=== PATIENT | female | born 1960 | race Caucasian/White ===

== ENCOUNTER → 2018-03-27 14:43 | Outpatient (CLI) | payer OTHER, SELFPAY ==
--- NOTE | 2018-03-27 | DI.CT.S_ITS ---
PROCEDURE: CT CHEST W CON INDICATIONS: PULMONARY NODULE TECHNIQUE: After the administration of intravenous contrast, 5 mm thick sections acquired from the pulmonary apices to the posterior costophrenic angles. 7 mm thick coronal and sagittal MIP reformats were acquired. For radiation dose reduction, the following was used: automated exposure control, adjustment of mA and/or kV according to patient size. COMPARISON: [facility], CT, CT [place], 10/22/2012, 14:58. FINDINGS: Image quality: Diagnostic. Lungs and pleura: There is no focal consolidation, effusion, or pneumothorax. No overt heart failure is identified. Minimal areas of scarring versus atelectasis are seen within the lung bases (left greater than right). There is a dominant anteriorly positioned right upper lobe pulmonary nodule, which measures approximately 1.7 x 1.6 x 2.2 cm (image 22, series 2). This was not appreciated on the examination from 10/22/12. No additional pulmonary nodules or lung masses are identified. Mediastinum: Heart size is normal. No pericardial effusion. No mediastinal or hilar adenopathy by size criteria. Thoracic aorta and central pulmonary arteries are normal in size. Esophagus is normal in caliber. No hiatal hernia. Bones and chest wall: No suspicious bony lesions. No vertebral body compression fractures. Age-appropriate degenerative changes of the spine are present. There are postsurgical changes of the lower cervical spine which are not completely included on this exam. There appears to be calcific tendinitis of the right shoulder. Postoperative changes of the right breast are identified. Multiple surgical clips are incidentally noted. No axillary or supraclavicular adenopathy by size criteria. Thyroid gland is not enlarged. Abdomen: Visualized upper abdominal solid organs appear normal. Upper abdominal bowel loops are normal in caliber. IMPRESSION: 1. No acute cardiopulmonary process. 2. 2 cm right upper lobe pulmonary nodule is new since 2012. Percutaneous biopsy of this nodule is recommended for diagnostic purposes. 3. No lymphadenopathy. Dictated by: Nabor Engel M.D. on 03/27/2018 at 14:37 Approved by: Nabor Engel M.D. on 03/27/2018 at 14:50
== END ==
PROVIDERS: PCP Family Medicine; Visit Provider Family Medicine
DX: R91.1 Solitary pulmonary nodule (principal)
CPT/HCPCS: 71260; Q9967

== ENCOUNTER 2018-04-09 08:49 | Day surgery (SDC) | payer OTHER, SELFPAY ==
[2018-04-09] VITALS (14 sets, daily range): BP systolic 90–114; BP diastolic 56–75; PULSE 59–70; RESP 14–18; TEMP 36.2–36.8; O2SAT 97–100; BMI 24.1
--- NOTE | 2018-04-09 | DI.RAD.S_ITS ---
PROCEDURE: XR CHEST 1V INDICATIONS: POST LUNG BIOPSY TECHNIQUE: One view of the chest was acquired. COMPARISON: [facility], CT, CT CHEST W CON, 03/27/2018, 14:59. FINDINGS: Surgical changes and devices: Cervical spine fixation hardware. Clips project in the right axilla Lungs and pleura: No pleural effusions or pneumothorax. Redemonstration of right upper lobe pulmonary nodule Mediastinum: Mediastinal contours appear normal. Heart size is normal. Bones and chest wall: No suspicious bony lesions. Overlying soft tissues appear unremarkable. IMPRESSION: No pneumothorax, status post CT guided biopsy of right upper lobe pulmonary nodule Dictated by: Lane Hardy M.D. on 04/09/2018 at 11:55 Approved by: Lane Hardy M.D. on 04/09/2018 at 11:57
--- NOTE | 2018-04-09 | DI.CT.S_ITS ---
PROCEDURE: CT BIOPSY LUNG RT Sedation analgesia for approximately 15 minutes. INDICATIONS: LUNG MASS TECHNIQUE: The indications, alternatives, benefits, risks, and possible complications of the procedure were communicated to the patient. Informed written consent from the patient was obtained and placed in the chart. Continuous EKG and hemodynamic monitoring was started by trained personnel. The patient was brought to the CT suite and emissions repair technician spiral CT imaging was performed with localization grid. The appropriate site for percutaneous access to the biopsy target was marked, was prepped and draped sterilely, and was infused with local anaesthesia. Under CT guidance, a core biopsy trocar and needle set was advanced to the biopsy target, and specimen(s) were obtained. The trocar and needle were then removed, and the patient was sent for post-procedure monitoring. COMPARISON: None. FINDINGS: Biopsy site: Right upper lobe pulmonary nodule Needle: 20 gauge biopsy needle with introducer trocar. Number of passes: 4 Medications: 1% lidocaine for local anaesthesia. IV Fentanyl and Versed for conscious sedation for approximately 15 minutes (see nursing record). Complications: None. IMPRESSION: Successful CT-guided biopsy of right upper lobe pulmonary nodule. Dictated by: Lane Hardy M.D. on 04/09/2018 at 11:52 Approved by: Lane Hardy M.D. on 04/09/2018 at 12:05
--- NOTE | 2018-04-09 | PATH_ITS ---
[facility] Accession Number: [id number] . 01 Material submitted: . RUL . 01 Clinical history: . MASS 4 NEEDLE CORE BIOPSY . 02 Diagnosis: Needle Core Biopsies, Upper Lobe, Right Lung: High-grade small cell carcinoma (neuroendocrine carcinoma), see microscopic description. . . . COMMENT: Case reviewed by Dr. Jackie Simon who agrees with the diagnosis. . The results of this evaluation are telephoned to the office of Dr. Lane Hardy at 12:30 p.m. on 04/13/2018. MRV/04/13/2018 . 02 Electronically signed: . Yoni Dias MD, Pathologist NPI- [id number] . 01 Gross description: . Received one formalin-filled container labeled with the patient's name and designated RUL mass are multiple tiny fragments of cylindrical shaped tissue. Average diameter 0.1 cm and ranging in length from 0.1 to 0.3 cm. The specimen is entirely submitted in one cassette. ([facility] [place]:[id number]) /[facility] . 02 Microscopic: . Sections are of needle core biopsy material from a mass in the upper lobe of the right lung. The tumor cores are totally replaced by a poorly differentiated carcinoma. The tumor cells are of small to intermediate size with . round to somewhat spindled appearing nuclei. Chromatin is fine and nucleoli are small or absent. Mitotic figures are frequent. Immunohistochemistry is performed in an attempt to ascertain the cell type of this tumor. . IMMUNOHISTOCHEMISTRY RESULTS: 1. Cytokeratin 5/6: Negative. 2. Synaptophysin: Positive. 3. Cytokeratin 7: Positive. 4. TTF1: Positive. 5. p40: Negative. . INTERPRETATION: This immunophenotype indicates that the tumor is a neuroendocrine carcinoma (high-grade small cell carcinoma). . 02 Pathologist provided ICD-10: C34.11 . 02 CPT . 294079, [id number], [id number] Performed at: [facility] [address] [id number] MD Gurpreet Clark MD Phone: [phone] Performed at: [facility] [address] [place], [place] [id number] MD Martin Griffin MD Phone: [phone]
--- NOTE | 2018-04-09 11:03 | SUR.PHASEII ---
Pt condition and vital signs stable. Denied pain or sob. Chest bandaid CDI. Anterior lobes clear. Call light within reach. Water provided.
--- NOTE | 2018-04-09 11:43 | SUR.PHASEII ---
Pt denied pain or sob.
[2018-04-09] MEDS: fentaNYL 100 MCG/2 ML INJ 50 MCG IV (12:09)
[2018-04-09] MEDS: MIDAZOLAM 2 MG/2 ML VIAL 1 MG IV (12:11)
--- NOTE | 2018-04-09 17:52 | SUR.PHASEII ---
Pt denied chest pain, sob, or any other pain. Bandaid cdi. IV d/c'd. Pt dressed independently
== END 2018-04-09 14:22 | disposition home or self-care (01) ==
LOC: OR 08:51
PROVIDERS: PCP Family Medicine; Visit Provider Family Medicine
PROC: BB24ZZZ Computerized Tomography (CT Scan) of Bilateral Lungs (ICD-10-PCS; CPT 32408; principal; 2018-04-09 10:00)
DX: C34.11 Malignant neoplasm of upper lobe, right bronchus or lung (principal)
CPT/HCPCS: 32405; 71045; 77012; J2250; J3010